=== PATIENT | male | born 1960 | race Caucasian/White ===

== ENCOUNTER 2019-05-23 08:42 | Day surgery (SDC) | payer BC ==
[~2019-05-23 08:42] MED LIST: Dexamethasone IV* 4 MG/ML 1 ML (4 MG) IV SLOW PU ONE; Lactated Ringers 1000 ML Bag* 1,000 ML IV SCH
[2019-05-23] MEDS ORDERED: Dexamethasone IV* 4 MG/ML 1 ML (4 MG) ONE (08:57)
[2019-05-23] MEDS ORDERED: ceFAZolin VIAL(*) VIAL ONE (09:32)
[2019-05-23] MEDS ORDERED: ceFAZolin 2 GM PREMIX in ORs 2 GM/50 ML BAG ONE (09:32)
[2019-05-23] MEDS ORDERED: Bupivacaine 0.25% SDV* 30 ML ONE (10:33)
[2019-05-23] MEDS ORDERED: Ketorolac INJ* 30 MG/ML 1 ML VIAL ONE (10:36)
[2019-05-23] MEDS ORDERED: Midazolam* 1 MG/ML 5 ML VIAL (5 MG) ONE (10:36)
[2019-05-23] MEDS ORDERED: Propofol* 10 MG/ML 20 ML BTL ONE (10:36)
[2019-05-23] MEDS ORDERED: Ondansetron INJ* 2 MG/ML VIAL ONE (10:36)
[2019-05-23] MEDS ORDERED: Buffered Lidocaine 1% SYRIN* 1 ML/SYRINGE INTRADERM ONE (10:37)
[2019-05-23] MEDS ORDERED: fentaNYL* 50 MCG/ML 5 ML VIAL (250 MCG VIAL) ONE (10:37)
[2019-05-23] MEDS ORDERED: Atracurium* 10 MG/ML 10 ML VIAL ONE (10:38)
[2019-05-23] MEDS ORDERED: Lidocaine 2% PF * 5 ML VIAL ONE (10:48)
[2019-05-23] MEDS ORDERED: fentaNYL* 50 MCG/ML 2 ML VIAL (100 MCG VIAL) ONE (11:12)
[2019-05-23] MEDS ORDERED: DiMENhydriNATE IV* 50 MG/ML VIAL IV PUSH PRN (11:40)
[2019-05-23] MEDS ORDERED: Naloxone* 0.4 MG/ML 1 ML VIAL IV PRN (11:40)
[2019-05-23] MEDS ORDERED: Ondansetron INJ* 2 MG/ML VIAL IV PRN (11:40)
[2019-05-23] MEDS ORDERED: fentaNYL* 50 MCG/ML 2 ML VIAL (100 MCG VIAL) IV PRN (11:40)
[2019-05-23 14:18] VITALS: BP 130/73
--- NOTE | 2019-05-23 20:09 | OP ---
DATE OF OPERATION: 05/23/19 - [facility] DATE OF : 62 SURGEON: Noe Leger MD SUBSTATION OPERATOR AUTOMATIC: SANTHOSH Metz. An assistant professor of drama was needed for the procedure to aid in positioning of the arm and retraction. ANESTHESIOLOGIST: Dr. Wilkerson. ANESTHESIA: General. PRE-OP DIAGNOSIS: Painful and symptomatic right thumb prior carpometacarpal arthroplasty. POST-OP DIAGNOSIS: Painful and symptomatic right thumb prior carpometacarpal arthroplasty. OPERATIVE PROCEDURE: Revision right thumb carpometacarpal arthroplasty with excision of a remnant of the trapezium that remained as well as suspension of the thumb with a Mini TightRope device. 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 It is very painful. He wants to see what he can do to get some relief. We talked about risks and benefits. He wanted to proceed. ESTIMATED BLOOD LOSS: 25 mL. COMPLICATIONS: None. FINDINGS: See above and below. DESCRIPTION OF PROCEDURE: Mr. Farrell was seen in the preoperative holding area. The correct site, side, and procedure were identified. We came back to the operating room, the arm was prepped and draped in the usual fashion and a time- out was performed. The arm was exsanguinated with the Esmarch and the tourniquet was inflated to 250 mmHg. I made a longitudinal incision over the dorsum of the trapezium and the CMC joint. He had had a prior Jaramillo incision. I did not utilize that. I dissected down. The radial artery was mobilized. A robust radial sensory nerve was retracted. Once the radial artery was mobilized, I incised the capsule and soft tissue and raised subperiosteal and capsular flaps to expose the site of the prior trapeziectomy. The anatomy was a bit distorted not just because of the prior trapeziectomy, but things did not look typical for revision. I brought in the mini C-arm. I was able to identify that a portion of the trapezium remained sitting just adjacent and articulating with the trapezoid. I released the margins of the soft tissue there with a 15 and then a [place] blade. Once I had mobilized that piece, I went ahead and excised it in its entirety. After that, I could clearly the scaphotrapezoid joint. There was also some proximal trapezium that was excised. I can now see the distal pole of the scaphoid. There was a very calcified capsule. That was all excised until everything was nice and soft all about the joint. The FCR tendon had been utilized previously, all of that was excised during the debridement and clean up portion of the procedure. At this point, the thumb base was nice and mobile. I trimmed off a proximal osteophyte. I cleaned up any osteophytes between the first and second metacarpal. I then placed my guidewire from a Mini TightRope device. I then pulled the TightRope device through using the guidewire. I made a 1 cm incision over the dorsum of the second metacarpal and had carefully dissected down to so that I can place the button right on the bone there. I then placed my second button over the metacarpal base and tied that off with couple of throws. I checked the tension and position both on mini C-arm fluoroscopy as well as clinically. Everything was looking good. I went ahead and tied the rest of the knots. Lastly, the scaphotrapezoid joint had looked good, so I did not need to address that, but I did want to place some soft tissue as an interposition. We went ahead and called for some AlloDerm tissue. We had to wait a few minutes for that, so I let down the tourniquet while we were awaiting. Once it was arrived , I re- exsanguinated the arm and reinflated the tourniquet. Once I had rinsed off and soaked the AlloDerm according to specifications, I made a little mat out of the tissue and secured it along the periphery with 4-0 Ethibond suture. This was then docked as an interposition between the first and second metacarpal bases as well as between the proximal metacarpal and the scaphoid. The capsule was then closed with 4-0 Vicryl suture. Skin was closed with 4-0 nylon suture. 0.25% Marcaine was infiltrated. The wound was dressed and a thumb spica splint with the IP joint free was applied. He was taken to the recovery room in stable condition. [id number]/[facility] #: [id number] MISAEL
== END 2019-05-23 14:44 | disposition home or self-care (01) ==
LOC: OREAST 08:42
PROVIDERS: ATTEND Orthopaedic Surgery Hand Surgery
DX: M96.89 Other intraoperative and postprocedural complications and disorders of the musculoskeletal system (principal); M18.11 Unilateral primary osteoarthritis of first carpometacarpal joint, right hand; I10 Essential (primary) hypertension; G47.33 Obstructive sleep apnea (adult) (pediatric); K21.9 Gastro-esophageal reflux disease without esophagitis; E66.9 Obesity, unspecified
CPT/HCPCS: C1776; J0690; J1100; J1885; J2250; J2405; J2704; J3010; J3490